=== PATIENT | female | born 2000 | race Caucasian/White ===

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

== ENCOUNTER → 2022-03-18 | Outpatient (CLI) | payer BC, MEDICAID ==
[~2022-03-18] VITALS: Ht 160 cm; Wt 90.0 kg
[~2022-03-18] MED LIST changes: +AMOX1TAB12; +DOCU-143 PO; +FLUC200T PO; +IBUP-1780 PO; +LURA40TA2 PO; +NORG1TAB14 PO; +OXYC1TAB87 PO; +PARO20TA5; +TRAZ-227 PO; +URSO250T12 PO; +[UNRECOGNIZED DRUG - CODE] PO
== END | disposition home or self-care (01) ==
LOC: PREOP 05:33
PROVIDERS: ATTEND Obstetrics & Gynecology
DX: Z01.818 Encounter for other preprocedural examination (principal)

== ENCOUNTER 2022-03-25 11:21 | Day surgery (SDC) | payer BC, MEDICAID ==
[2022-03-25] VITALS (11 sets, daily range): BP systolic 106–127; BP diastolic 58–87
[~2022-03-25] VITALS: Ht 160 cm; Wt 90.0 kg
[~2022-03-25 11:21] MED LIST changes: -DOCU-143 PO; -FLUC200T PO; -IBUP-1780 PO; -OXYC1TAB87 PO
[2022-03-25] MEDS ORDERED: LIDOCAINE/EPI 1%-1:200,000 (XYLOCAINE) 30 ML VIAL ONE (11:29)
[2022-03-25] MEDS ORDERED: ONDANSETRON 4 MG/2 ML (SDV) Z0FRAN ONE (11:48)
[2022-03-25] MEDS ORDERED: MIDAZOLAM 2 MG/2 ML (VERSED) VIAL ONE (11:48)
[2022-03-25] MEDS ORDERED: proPOfol 200 MG/20 ML (DIPRIVAN) VIAL IV ONE (11:48)
[2022-03-25] MEDS ORDERED: SEVOFLURANE (ULTANE) 15 ML INHAL SOLN ONE ×2 (11:48→13:38)
[2022-03-25] MEDS ORDERED: fentaNYL INJ 100 MCG/2 ML AMP ONE (11:48)
[2022-03-25] MEDS ORDERED: LIDOCAINE PF 2% 5 ML (XYLOCAINE) VIAL ONE (11:48)
[2022-03-25] MEDS ORDERED: ceFAZolin INJECTION 1,000 MG VIAL IV ONE (12:15)
[2022-03-25] MEDS ORDERED: LACTATED RINGERS 1,000 ML IV PRN (12:15)
--- NOTE | 2022-03-25 13:01 | Progress Note-Pre Operative ---
Pre-Operative Progress Note H&P Reviewed The H&P was reviewed, patient examined and no changes noted. Date Seen by Provider: March 25, 2022 Time Seen by Provider: 13:01 Date H&P Reviewed: March 25, 2022 Time H&P Reviewed: 13:01 Pre-Operative Diagnosis: Chronic pelvic pain dysmenorrhea menorrhagia labialHypertrophy labial ulcer LEO TRUJILLO MD March 25, 2022 13:01
--- NOTE | 2022-03-25 13:02 | Progress Note-Post Operative ---
Post-Operative Progess Note Surgeon (s)/Monument Stonecutter (s) Surgeon LEO TRUJILLO MD Monument Stonecutter: Ana Pre-Operative Diagnosis Chronic pelvic pain dysmenorrhea menorrhagia labialHypertrophy labial ulcer Post-Operative Diagnosis Same with appendicitis and with endometriosis and with pathology pending Procedure & Operative Findings Date of Procedure 03/25/22 Procedure Performed/Findings bilateral partial vulvectomy as well as laparoscopic treatment of endometriosis on the uterus and pelvic peritoneum as well as adhesiolysis and laparoscopic appendectomy Anesthesia Type General Estimated Blood Loss Estimated blood loss (mL): None minimal Specimens/Packing Specimens Removed Appendix, excoriated and hypertrophic labia minora LEO TRUJILLO MD March 25, 2022 13:02
[2022-03-25] MEDS ORDERED: IBUP-1780 PO (13:07)
[2022-03-25] MEDS ORDERED: DOCU-143 PO (13:07)
[2022-03-25] MEDS ORDERED: OXYC1TAB87 PO (13:07)
[2022-03-25] MEDS ORDERED: FLUC200T PO (13:07)
--- NOTE | 2022-03-25 13:10 | Discharge Inst-Surgical ---
Discharge Inst-Surgical Depart Medication/Instructions New, Converted or Re-Newed RX: Transmitted to Pharmacy Consults/Follow Up Patient Instructions: As directed Orders & Referrals Follow Up Appt: Call to make follow up appt. for patient in 1 weeks For suture removal and 3 weeks for postoperative check. Activity: Rest for 24 hours, than as tolerated. Wound Care: May remove Band-Aid tomorrow. Replace as desired. Keep incisions clean and dry. Wash daily with soap and water. Prescriptions have been sent to pharmacy. Diet: As tolerated may shower or tub bathe as desired. No driving for 24 hours, no alcoholic beverages for 24 hours, and nothing per vagina (no tampons, douching, or intercoarse) for 2 weeks. Patient to return to the clinic as soon as possible for: Temperature greater than 101F, Severe Pain, Foul discharge from incision or vagina, Excessive Bleeding (more than a period). Activity Activity as Tolerated: No Diet Discharge Diet: No Restrictions LEO TRUJILLO MD March 25, 2022 13:10
[2022-03-25] MEDS ORDERED: HYDROmorphone 2 MG/ML VIAL (DILAUDID) ONE (13:23)
[2022-03-25] MEDS ORDERED: GLYCOPYRROLATE 0.2 MG/ML (ROBINUL) 2 ML VIAL ONE ×2 (13:54→14:09)
[2022-03-25] MEDS ORDERED: NEOSTIGMINE 3 MG/3 ML VIAL ONE (14:09)
[2022-03-25] MEDS ORDERED: KETOROLAC 30 MG/ML VIAL ONE (14:10)
[2022-03-25] MEDS ORDERED: ROCURONIUM 50 MG/5 ML (ZEMURON) VIAL IV ONE (14:13)
[2022-03-25] MEDS ORDERED: HYDROmorphone 2 MG/ML VIAL (DILAUDID) IV ONE (14:45)
[2022-03-25] MEDS ORDERED: ONDANSETRON 4 MG/2 ML (SDV) Z0FRAN IVP PRN (14:45)
[2022-03-25] MEDS ORDERED: HYDROcodone/APAP 5 MG/325 MG (LORTAB) TAB ONE (15:44)
[2022-03-25] MEDS ORDERED: HYDROcodone/APAP 5 MG/325 MG (LORTAB) TAB PO ONE (15:45)
--- NOTE | 2022-03-25 23:59 | OPERATIVE REPORT ---
DATE OF SERVICE: 03/25/2022 PREOPERATIVE DIAGNOSES: Chronic pelvic pain, likely endometriosis and dysmenorrhea and dyspareunia as well as labial hypertrophy and labial ulceration and labial pain. POSTOPERATIVE DIAGNOSES: Chronic pelvic pain, likely endometriosis and dysmenorrhea and dyspareunia as well as labial hypertrophy and labial ulceration and labial pain with pathology pending. OPERATIVE PROCEDURE: Laparoscopy for destruction of endometriosis, adhesiolysis and appendectomy as well as bilateral partial vulvectomy. OPERATIVE DESCRIPTION: With the patient in the supine position under satisfactory general anesthesia, she was repositioned in dorsal lithotomy position in the [facility] and prepped and draped in the usual fashion for abdominal and vaginal surgery. The cervix was exposed by placing a weighted speculum in the posterior fourchette. The cervix was grasped anteriorly with single tooth tenaculum. The uterus was sounded to 9 cm with uterine sound. The cervix was then serially dilated with Stone dilators to a #18 Stone and then a uterine manipulator was placed and the bulb filled with 4 mL of air. The tenaculum and speculum were removed and the uterine manipulator rotated posterior to be out of the way for the partial vulvectomy. The patient had quite redundant hypertrophic tissue in the labia minora more on the left than on the right, both were quite prominent. There were ulcerations and abrasions from garment pressure on the lateral aspect of both labia minora. The inner labia minora were somewhat erythematous and irritated. The labia minora were approximated together and elevated symmetrically and then marked to remove the redundant tissue that would be distal to the labia majora interface and then that tissue was removed sharply with Fiore scissors. Both labia minora were then closed in a running fashion with a baseball stitch from anterior to posterior with the hidden/buried knots on each end. Blood loss was around 50 mL for the total procedure. The patient tolerated this portion of the procedure well. With the labia hemostatic and labial surgery, vulvectomy surgery completed, attention was turned to laparoscopy. The patient was brought in low dorsal lithotomy position. The urinary bladder was drained with a straight catheter. A 5 mm incision made in the patient's left upper quadrant and a stab wound was made above the umbilicus. Veress needle was placed through that stab wound into the abdominal cavity and correct placement confirmed with water drop test. The abdomen was insufflated with 2.4 liters of carbon dioxide. The Veress needle was removed and a 5 mm Optiview laparoscopic port was placed through the incision in the left upper quadrant. The abdominal wall was transilluminated. A 12 mm port was placed infraumbilically and a 5 mm port placed suprapubically through incisions of those sizes after first infiltrating all three incision sites with 1% lidocaine with epinephrine. With the patient in Trendelenburg, the bowel spill out of the pelvis. The uterus was examined as were the ovaries, fallopian tubes and appendix. The appendix was involved in adhesions on the pelvic brim. It was injected and swollen and indurated in its mid portion. Decision was made to go ahead with appendectomy because of the appearance of some degree of appendicitis. The right fallopian tube was quite clubbed on the end. The left fallopian tube was clubbed to some extent on the end. Both ovaries appeared normal. The uterus appeared relatively normal, although there was some mottling consistent with adenomyosis. Both ovarian fossae and the cul-de-sac had extensive endometriosis implants more so in the left ovarian fossa and the cul-de-sac than on the right, but all of these implants were touched with electrocautery to destroy the implants. The pelvis was then irrigated and examined. Hemostasis was complete. A couple of more endometriosis implants were identified. These were touched with electrocautery to destroy them. With all the endometriosis implants destroyed and hemostasis assured, no remaining pathology in the pelvis. The attention was turned to the appendix. Appendix was grasped and elevated. The mesoappendix was divided partially allowing access to the adhesions of the appendix and the mesoappendix to the pelvic brim. These were taken down with very careful and meticulous dissection freeing the appendix from its adhesions. Then, the base of the mesoappendix was perforated. The Endo-LAITH was placed across the base of appendix and fired. Additional dissection was taken across the mesoappendix until it was skeletonized to the point where an additional firing of the LAITH across the mesoappendix could separate the attachments and remove the appendix from its site. The appendix was placed in an Endobag and left in the pelvis for removal later. The stump of the appendix was copiously irrigated and examined for hemostasis, it was complete. There was no abnormal remaining pathology, and no adhesions remaining involving the cecum. The pelvis was irrigated the final time and examined again, there were no remaining endometriosis implants and no other abnormal appearing pathology. Hemostasis was complete. There was no bleeding. The stump of the appendix was then treated with several drops of Betadine solution and the procedure was complete and terminated. The operative instruments were removed under direct vision. No bleeding was noted. The operative ports were removed under direct vision again no bleeding was noted. The abdomen was evacuated of insufflating gas in the process of removing the ports. The skin incisions were closed with nylon suture. The fascia at the supraumbilical incision closed with [id number] suture of 2-0 Vicryl. Sponge and needle counts were correct. The uterine manipulator bulb was drained. The instruments were removed from the vagina. Speculum replaced in the vagina, cervix examined for hemostasis, which was complete. The labia minora. Three section sites from the partial vulvectomy bilaterally were hemostatic at this point as well. The patient tolerated the procedure well and was uneventfully awakened from her general anesthesia and transferred to recovery room in stable condition with plans for discharge home PAR. Sponge and needle counts were correct. Blood loss was less than 150 mL. Job ID: [id number] DocumentID: [id number] Dictated Date: 03/25/2022 14:53:35 Refinery Operator Helper Cracking Unit Date: 03/25/2022 23:58:49 Dictated By: LEO TRUJILLO MD
--- NOTE | 2022-04-01 17:31 | Anesthesia-General Post-Op ---
General Patient Condition Mental Status/LOC: Same as Preop Cardiovascular: Satisfactory Nausea/Vomiting: Absent Respiratory: Satisfactory Pain: Controlled Complications: Absent Post Op Complications Complications None Follow Up Care/Instructions Patient Instructions None needed. Anesthesia/Patient Condition Patient Condition Patient is doing well, no complaints, stable vital signs, no apparent adverse anesthesia problems. No complications reported per nursing. D/C home per [facility] Criteria: Yes RONNY PALAFOX CRNA April 01, 2022 17:31
== END 2022-03-25 16:45 | disposition home or self-care (01) ==
LOC: SDC 11:21
PROVIDERS: ATTEND Obstetrics & Gynecology
DX: N94.6 Dysmenorrhea, unspecified (principal); G89.29 Other chronic pain; K35.80 Unspecified acute appendicitis; N80.3 Endometriosis of pelvic peritoneum; N94.11 Superficial (introital) dyspareunia; N76.6 Ulceration of vulva; R10.2 Pelvic and perineal pain; K38.0 Hyperplasia of appendix; Z68.35 Body mass index [BMI] 35.0-35.9, adult; Z87.891 Personal history of nicotine dependence
CPT/HCPCS: 84703; 87081; 88304

== ENCOUNTER 2022-06-08 09:12 | Emergency (ER) | payer BC ==
[~2022-06-08 09:12] MED LIST changes: +DOCU-143 PO; +FLUC200T PO; +IBUP-1780 PO; +OXYC1TAB87 PO
--- NOTE | 2022-06-08 09:57 | ED Abdominal Pain ---
General Chief Complaint: Abdominal/GI Problems Stated Complaint: ABD PAIN Nursing Triage Note: PT TO RM 8 BY WC WITH C/O LEFT LOWER ABD PAIN X2 MONTHS AND THINKS ITS HER ENDOMETRIOSIS. PT SEEN LAST WEDNESDAY AT [facility] FOR SAME SX. PT STATES SHE HAS AN APPOINTMENT WITH DR GRAY TOMORROW. Source of Information: Patient Exam Limitations: No Limitations History of Present Illness Date Seen by Provider: Jun 08, 2022 Time Seen by Provider: 09:52 Initial Comments Patient is a 21-year-old who presents to the emergency department today with a chief complaint of diffuse abdominal discomfort. She states she had surgery for endometriosis about a month ago. She states ever since her surgery she has had worsening pain. She denies fevers, chills, nausea, vomiting, diarrhea. No dysuria, urgency or frequency. She states she "always" has vaginal discharge, nothing has changed or is different. She denies rashes, joint pain or swelling. No COVID concerns. She was seen at a hospital in [place] last week and prescribed some oxycodone. She states she woke up this morning with such severe pain she could not get out of bed and did not take her oxycodone. She has not taken any other itpo-rih-emnmlhu medications. She was prescribed something by Dr. TRUJILLO, her surgeon that she has been taking periodically but has not really helped. She tells me she has an appointment with him tomorrow at 2 PM. Last menstrual cycle was 30 May. It usually last for 5 days. She is sexually active. She stopped her control about a week ago. No other complaints of illness or injury. All other review of systems reviewed and negative except as stated Timing/Duration: Other (1 month) Severity/Quality: Severe, Cramping Radiation: No Radiation Associated Symptoms: Denies Symptoms Allergies and Home Medications Allergies Coded Allergies: No Known Drug Allergies (Unverified , 01/17/13) Patient Home Medication List Home Medication List Reviewed: Yes Docusate Sodium (Colace) 100 Mg Capsule, 100 MG PO BID Prescribed by: LEO REEVES on 03/25/22 1307 Fluconazole (Diflucan) 200 Mg Tablet, 200 MG PO Q48H Prescribed by: LEO REEVES on 03/25/22 1307 Ibuprofen (Ibuprofen) 800 Mg Tablet, 800 MG PO Q6H PRN for PAIN Prescribed by: LEO REEVES on 03/25/22 1307 Lurasidone HCl (Latuda) 40 Mg Tablet, 80 MG PO, (Reported) Entered as Reported by: MIRANDA LUX on 03/18/22 160 Mirabegron (Myrbetriq) 8 Mg/Ml Fatuma.er.rec, 8 MG PO, (Reported) Entered as Reported by: MIRANDA LUX on 03/18/22 160 Norgestimate-Ethinyl Estradiol (Sprintec 28 Day Tablet) 0.25 Mg-35 Mcg Tablet, 1 EACH PO DAILY, (Reported) Entered as Reported by: MIRANDA LUX on 03/18/22 160 Trazodone HCl (Trazodone HCl) 100 Mg Tablet, 100 MG PO DAILY, (Reported) Entered as Reported by: MIRANDA LUX on 03/18/22 160 Ursodiol (Ursodiol) 250 Mg Tablet, 250 MG PO BID, (Reported) Entered as Reported by: MIRANDA LUX on 03/18/22 160 Review of Systems Review of Systems Constitutional: see HPI EENTM: No Symptoms Reported Respiratory: No Symptoms Reported Cardiovascular: No Symptoms Reported Gastrointestinal: Abdominal Pain Genitourinary: No Symptoms Reported Musculoskeletal: no symptoms reported Skin: no symptoms reported All Other Systems Reviewed Negative Unless Noted: Yes Past Uvehaty-Txvwvu-Ksadbc Hx Patient Social History Tobacco Use?: No Use of E-Cig and/or Vaping dev: No Substance use?: No Alcohol Use?: Yes Alcohol Frequency: Once in a while Pt feels they are or have been: No Immunizations Up To Date PED Vaccines UTD: Yes Influenza Vaccine Up-to-Date: No; Not Current First/Initial COVID19 Vaccinat: 2020 Second COVID19 Vaccination Paolo: 2020 Third COVID19 Vaccination Date: 2020 Seasonal Allergies Seasonal Allergies: Yes Past Medical History Surgery/Hospitalization HX: ENDOMETRIOSIS, PRIMARY BILIARY COLANGITIS APPY Surgeries: Yes (WISDOM TEETH) Gallbladder Respiratory: No Currently Using CPAP: No Currently Using BIPAP: No Cardiac: No Neurological: No Last Menstrual Period: May 31, 2022 Female Reproductive Disorders: Pelvic Inflammatory Dis, Endometriosis Genitourinary: No Gastrointestinal: Yes (PRIMARY BILIARY COLONGITIS) Liver Disease/Jaundice Musculoskeletal: No Endocrine: No HEENT: Yes (GLASSES) Cancer: No Psychosocial: Yes Anxiety, Depression Integumentary: No Blood Disorders: No Family Medical History No Pertinent Family Hx Physical Exam Vital Signs Vital Signs - First Documented 06/08/22 09:26 Temp 36.0 Pulse 82 Resp 14 B/P (MAP) 111/71 (84) Capillary Refill : Height/Weight/BMI Height: 5'" Weight: 140lbs. oz. [id number]; 35.15 BMI Method: General Appearance: WD/WN, no apparent distress HEENT: PERRL/EOMI Neck: normal inspection Respiratory: lungs clear, normal breath sounds, no respiratory distress, no accessory muscle use Cardiovascular: regular rate, rhythm Gastrointestinal: normal bowel sounds, soft, tenderness (mild diffuse without rebound or guarding; quiet bowel sounds) Extremities: normal range of motion, normal inspection Neurologic/Psychiatric: alert, normal mood/affect, oriented x 3 Skin: normal color, warm/dry, other (Small area of eschar lower abdomen approximately 1-1/2 cm in diameter that the patient relates to a "burn" from a heating pad that contained "corn kernels". No surrounding erythema. No drainage, no fluctuance.) Progress/Results/Core Measures Results/Orders My Orders Orders - JUSTYN CHOUDHARY MD Urine Bedside (06/08/22 09:30) Ketorolac Injection (Toradol Injection) (06/08/22 10:15) Vital Signs/I&O 06/08/22 09:26 Temp 36.0 Pulse 82 Resp 14 B/P (MAP) 111/71 (84) Blood Pressure Mean: 84 Progress Progress Note : Time: 10:06 Progress Note Discussion with the patient regarding her postoperative endometriosis pain. I advised her without any new, acute symptoms there is a low likelihood I would be able to "diagnose" her with any new conditions. I advised that her best bet was to follow-up with Dr. TRUJILLO tomorrow at 2 PM as scheduled so that he could further advise her on the best course of management of her endometriosis. Her vital signs are stable. Her exam is reassuring. I offered pain management, Toradol. She is given 60 mg IM. I recommended that she take her prescribed pain medications. Monitor for symptoms/worsening and definitely keep that appointment. She verbalized understanding and agreement with plan of care. All questions were sought and answered. I did review Dr. TRUJILLO's operative note from a month ago. He identified multiple areas of endometriosis which were addressed during surgery. She also had an appendectomy at that time. No complications were reported in the medical record. Departure Impression Primary Impression: Abdominal pain Qualified Codes: R10.84 - Generalized abdominal pain Additional Impression: History of endometriosis Disposition: 01 HOME, SELF-CARE Condition: Stable Departure-Patient Inst. Decision time for Depature: 10:08 Referrals: LEO TRUJILLO MD,LOCAL PHYSICIAN (PCP) Primary Care Physician Patient Instructions: Abdominal Pain, Adult ED Add. Discharge Instructions: Drink plenty of fluids to stay well-hydrated. You can take [id number] Aleve/naproxen, 2 tablets every 12 hours with food as needed for pain. Continue your oxycodone every 6 hours as needed for more severe pain. Please keep your appointment with Dr. TRUJILLO tomorrow at 2 PM. Monitor yourself for new symptoms such as fever, vomiting or any other emergent, concerning issues. If you develop any new concerns please return to the emergency room for reevaluation Copy Copies To 1: LEO TRUJILLO MD, KATHRYN M MD Jun 08, 2022 09:57
[2022-06-08] MEDS ORDERED: KETOROLAC 60 MG/2 ML VIAL IM ONE (10:15)
[2022-06-08 10:27] VITALS: BP 109/74
== END 2022-06-08 10:28 | disposition home or self-care (01) ==
LOC: EDUNIT# 09:12 → ER 09:13
DX: R10.84 Generalized abdominal pain (principal); Z87.42 Personal history of other diseases of the female genital tract; Z98.890 Other specified postprocedural states
CPT/HCPCS: 84703; 99284